=== PATIENT | male | born 1985 ===

== ENCOUNTER 2023-12-19 06:24 | Day surgery (SDC) | payer OTHER, SELFPAY ==
[2023-12-19 08:35] VITALS: BMI 23.1
[2023-12-19 08:42] VITALS: BP 123/77
[2023-12-19] MEDS: NORMOSOL-R 1000 IV (08:47)
[2023-12-19 08:50] VITALS: BMI 23.1
--- NOTE | 2023-12-19 11:24 | W.IMMPOSTOP ---
Surgical Immed Post Op Note
-
Primary Surgeon: Rubén Guido MD
Assisting Surgeon: None
Pre-op Diagnosis: Anal fissure
Post-op Diagnosis: Anal fissure
Procedure Performed: Botox injection of the internal anal sphincter
Anesthesia Type: Sedation with local
Specimen / Cultures: None
Estimated Blood Loss: 5 mL
Complications: None
Operative Findings: Per op note
--- NOTE | 2023-12-19 11:25 | OR.RPT ---
Operative Report
Operative Report
DATE OF OPERATION: 12/19/2023
SURGEON: Rubén Guido MD
PREOPERATIVE DIAGNOSIS: Anal fissure
POSTOPERATIVE DIAGNOSIS: Anal fissure
OPERATION: Exam under anesthesia, injection of botox into internal anal sphincter, fissurectomy, bilateral pudendal nerve block
ASSISTANTS:
1. None
ANESTHESIA: MAC w/ local
ESTIMATED BLOOD LOSS: 5 mL
FINDINGS:
1. Small anterior midline anal fissure about 2 mm in size
2. Small posterior midline anal fissure with evidence of reepithelialization, about 3 mm in size
SPECIMENS:
1. None
DRAINS: None
COMPLICATIONS: None
INDICATIONS: The patient is a 38-year-old male who presented to my office with perianal pain and was diagnosed with an anal fissure. Initially, he had improvement with nifedipine/lidocaine cream, but the fissure recurred. Therefore, the patient
was recommended to have surgery. The operation was discussed with the patient in detail, including the risks, benefits and alternatives. Risks described included, but not limited to bleeding, infection, urinary retention, damage to nearby structures
such as the anal sphincter, fecal incontinence, recurrence, and anesthetic risks. The patient understood and agreed to proceed. The consent was signed and placed in the chart.
PROCEDURE IN DETAIL: The patient was taken to the operating room. The patient was then placed on the operating table in prone position. Sequential compression devices were placed bilaterally. Sedation was commenced without complication. Two seat
belts were secured around the legs and upper back. The buttocks were taped apart. The perineum was shaved, prepped and draped in the usual fashion. A time-out was then performed verifying the correct patient, procedure, operative site,
positioning, and special equipment.
Local anesthesia used was a mixture of 60 mL of 0.25% Marcaine without epinephrine (with epinephrine was on backorder) and 0.6 mg of dexamethasone. 40 mL was injected perianally at the beginning of the case. The anorectal exam was performed
assessing all four quadrants of the anal canal using Hill-Santoyo retractors in progressively increasing size. In the anterior midline, a small acute anal fissure was noted, only about 2 mm in size. A small external hemorrhoid was noted in the
left posterior position, not irritated or thrombosed, not needing intervention. A small anal fissure was noted in the posterior midline with evidence of healing and reepithelialization, about 3 mm in size. The internal sphincter was noted to be
hypertonic and unable to accommodate the largest Hill-Santoyo retractor. Therefore, I proceeded with Botox injection.
100 units of Botox was drawn up with 2 mL of sterile saline. Using a 30-gauge needle, the Botox was injected in 4 quadrants in equal portions, specifically 25 units in the anterior midline, right lateral quadrant, posterior midline and left lateral
quadrant. Care was taken to avoid incidental injection into the external sphincter. Both fissures were fulgurated with electrocautery to encourage wound healing.
Hemostasis was assured. At the end of the case, the remaining 20 mL of local were injected. 5 mL was injected bilaterally for a pudendal nerve block. 10 mL was injected around the surgical site and perianally. Hemostasis was reassessed once more
using the small Hill-Santoyo and was confirmed. Surgicel was placed in the operative site prophylactically.
At this point, the procedure was complete. All needle, sponge and instrument counts were correct. The patient tolerated the procedure well and was transferred to the recovery room in stable condition with gauze dressing in place secured with silk
tape.
DICTATED BY: Rubén Guido MD
[2023-12-19 11:30] VITALS: BP 113/64
[2023-12-19 11:45] VITALS: BP 114/77
[2023-12-19 12:00] VITALS: BP 114/81
== END 2023-12-19 12:33 | disposition home or self-care (01) ==
LOC: SDS 06:24
PROVIDERS: ATTENDING PHYSICIAN Surgery
DX: K60.2 Anal fissure, unspecified (principal)
CPT/HCPCS: 46200; J0585